=== PATIENT | male | born 1985 | race Hispanic/Latino ===

== ENCOUNTER 2016-11-12 07:40 | Emergency (ER) | payer OTHER ==
[~2016-11-12] VITALS: Ht 172.7 cm; Wt 79.4 kg
[2016-11-12] MEDS ORDERED: KETOROLAC 30 MG/ML VIAL (J1885) IV ONE (08:30)
--- NOTE | 2016-11-12 09:07 | REP ---
Right shoulder: Three views. History: Bony tenderness. Findings: The right glenohumeral and acromioclavicular joints are normally aligned. Periarticular soft tissues are unremarkable. No fracture or subluxation is seen. Impression: Negative right shoulder views. Signed by Jamey Quezada MD 11/12/2016 12:16 P
--- NOTE | 2016-11-12 09:24 | REP ---
Emergency right upper extremity duplex venous ultrasound: History: Swelling and deformity. Shoulder pain. Findings: The basilic, brachial, axillary, subclavian and internal jugular veins are anechoic, compressible on two-dimensional scanning, and show normal color Doppler and pulsed Doppler flow characteristics on Doppler interrogation. The right cephalic vein is essentially anechoic and completely compressible on two-dimensional scanning. However, we were unable to document color Doppler and spectral Doppler flow signal characteristics in the cephalic vein. This implies very slow flow. No proximal obstruction was identified. Impression: No definite right upper extremity venous thrombosis is seen. Slow flow suspected in the right cephalic vein by virtue of our inability to show color signal or spectral Doppler flow characteristics within it. Signed by Jamey Quezada MD 11/12/2016 12:17 P
[2016-11-12] MEDS ORDERED: ISOVUE-370 76% 100ML VIAL (Q9967) As Ordered ONE (09:47)
--- NOTE | 2016-11-12 11:03 | REP ---
CT study of the right shoulder with IV contrast: CT contrast dose: 75 mL of Isovue 370 is administered. History: Right shoulder pain and tenderness. Suggestion of slow flow in the cephalic vein seen on sonography. Comparison radiographs are from this date. Technique: Helical scanning is acquired. Overlapping 3 mm axial images are generated and reviewed at bone and soft-tissue window settings. CT findings: The glenohumeral and acromioclavicular joints are normally aligned. There is a small periarticular soft-tissue calcification along the superior aspect of the glenoid consistent with a fragmented spur. This is at the posterosuperior aspect of the glenoid. This implies calcific tendonitis or bursitis change. No other periarticular soft-tissue calcification is seen. Skeletal muscle is homogeneous and unremarkable. Subclavian vein is patent. The course of the cephalic vein is unremarkable. There is no CT evidence of venous thrombosis. Lung window settings show that the visualized portions of the right lung are clear. Impression: 1. periarticular soft tissue calcification at the posterosuperior margin of the right glenoid may reflect calcific tendonitis or bursitis change. Otherwise negative. No CT evidence of venous thrombosis. Signed by Jamey Quezada MD 11/12/2016 12:27 P
[2016-11-12] MEDS ORDERED: MOBI7.5T10 PO (12:08)
[2016-11-12 12:21] VITALS: BP 122/80
--- NOTE | 2016-11-13 11:22 | ED PDOC ---
Provider Note radiology report faxed to PCP/certified letter María Aldridge MD Nov 13, 2016 11:22
== END 2016-11-12 12:24 | disposition home or self-care (01) ==
LOC: M ED 08:43
DX: M75.31 Calcific tendinitis of right shoulder (principal); M75.51 Bursitis of right shoulder
CPT/HCPCS: 73030; 73200; 93971; 96374; 99283; J1885; Q9967